=== PATIENT | male | born 1990 | race Caucasian/White ===

== ENCOUNTER 2019-11-20 16:20 | Emergency (ER) | payer SELFPAY ==
[2019-11-20 16:31] VITALS: BP 118/83; PULSE 94; RESP 18; TEMP 36.6; O2SAT 96; BMI 29.8
--- NOTE | 2019-11-20 16:43 | CTR_ITS ---
PROCEDURE INFORMATION: Exam: CT Head Without Contrast Exam date and time: 11/20/2019 4:46 PM Age: 29 years old Clinical indication: Dizziness and weakness, extremity; Bilateral; Patient HX: Weakness, dizziness , near syncope TECHNIQUE: Imaging protocol: Computed tomography of the head without contrast. Radiation optimization: All CT scans at this facility use at least one of these dose optimization techniques: automated exposure control; mA and/or kV adjustment per patient size (includes targeted exams where dose is matched to clinical indication); or iterative reconstruction. COMPARISON: No relevant prior studies available. RADIATION DOSE METRICS: Total DLP (mGy-cm): 756.52 FINDINGS: Brain: Normal. No hemorrhage. Unremarkable white matter. No mass effect. Ventricles: Normal. No ventriculomegaly. Bones/joints: Unremarkable. No acute fracture. Sinuses: There is partial opacification of the ethmoid air cells in keeping with some ethmoid sinusitis. Mastoid air cells: Visualized mastoid air cells are well aerated. Soft tissues: Unremarkable. CT/CT head wo con* [id number] IMPRESSION: Ethmoid sinus disease. No acute intracranial finding. Radiation Dose CTDIVOL = (mGy): DLP = 756.52 (mGy-cm)
--- NOTE | 2019-11-20 16:43 | XRR_ITS ---
PROCEDURE INFORMATION: Exam: XR Chest, 1 View Exam date and time: 11/20/2019 5:13 PM Age: 29 years old Clinical indication: Other: Weakness and syncope; Patient HX: PT weak and syncope 11/19. Shortness of breath TECHNIQUE: Imaging protocol: XR of the chest Views: 1 view. COMPARISON: No relevant prior studies available. FINDINGS: Lungs: Unremarkable. No consolidation. Pleural space: Unremarkable. No pleural effusion. No pneumothorax. Heart/Mediastinum: Unremarkable. No cardiomegaly. Bones/joints: Unremarkable. XR/XR chest 1V portable [id number] IMPRESSION: No acute findings.
--- NOTE | 2019-11-20 16:44 | ECG_ITS ---
[facility] Test Date: 2019-11-20 Pat Name: Lucian Garcia Department: Room: Gender: Male Sfdc Solution Architect: : 1990 Requested By: Brendan Mederos Order Number: [id number] Saige MD: Tom Boateng M.D. Measurements Intervals [place] Rate: 77 P: 35 VA: 157 QRS: 37 QRSD: 117 T: 44 QT: 383 QTc: 435 Interpretive Statements SINUS RHYTHM WITH SINUS ARRHYTHMIA MODERATE INTRAVENTRICULAR CONDUCTION DELAY [110+ ms QRS DURATION] No previous ECG available for comparison Electronically Signed On 11-21-2019 9:38:52 CDT by Tom Boateng M.D. [id number]
--- NOTE | 2019-11-20 16:44 | PC.NURSE ---
After triaging patient, mother stated her (patients father) had recently .
--- NOTE | 2019-11-20 16:51 | ED_ITS ---
HPI - Syncope General: Chief Complaint: Syncope Stated Complaint: sob/dizzy Time Seen by Provider: 11/20/19 16:43 History of Present Illness: HPI narrative: Patient has multiple symptoms or complaints. He complains of lightheadedness and dizziness. Patient states that he has syncopal episodes whether lying sitting or standing. Has nausea and also has no appetite. He also has generalized weakness and malaise. Patient also reports that there have been one or 2 episodes were all 4 extremities felt numb and tingly at the same time. Speaking with the family member learn the patient's father the day after Father's Day this year. MD complaint: felt faint, almost passed out and collapsed Prodromal symptoms: lightheaded, chest pain, palpitations, shortness of breath and vertigo Witnessed: Yes - by Other Context: at rest and alcohol use Injuries sustained associated with event: none Associated symptoms: Reports no associated symptoms Treatments prior to arrival: none Review of Systems General: Reports: 10 or more systems reviewed and unremarkable except in HPI and below PFSH ED PFSH: Social History Smoking and tobacco status: current every day smoker Physical Exam Const: COMMON NORMALS: no acute distress, healthy appearing and well nourished GENERAL APPEARANCE: cooperative and well developed HENMT: COMMON NORMALS: normocephalic and atraumatic HEAD & SCALP: normal to inspection, normocephalic and atraumatic Eye: GENERAL EYE: appearance normal, both eyes and all related structures Neck/C-Spine: COMMON NORMALS: full ROM, no lymphadenopathy and no meningeal signs GENERAL: Yes normal visual inspection CERVICAL SPINE: Yes cervical ROM normal and Yes normal cervical lordosis Chest: COMMONS NORMALS: normal inspection of the chest and normal palpation of entire chest wall Resp: COMMON NORMALS: normal respiratory effort, clear to auscultation bilaterally and percussion normal AUSCULTATION: clear to auscultation bilaterally PERCUSSION: percussion normal Cardio: COMMON NORMALS: regular rate, regular rhythm, S1 normal heart sound present and S2 normal heart sound present JUGULAR VENOUS DISTENTION: no JVD PALPATION: normal PMI RATE: regular rate RHYTHM: regular rhythm HEART SOUNDS: S1 normal heart sound present and S2 normal heart sound present GI: COMMON NORMALS: Soft to palpation and No hepatosplenomegaly present INSPECTION: Yes normal to inspection PALPATION: Yes Soft to palpation and Yes No hepatosplenomegaly present PERCUSSION: normal to percussion : COMMON NORMALS: Yes no CVA tenderness BLADDER/KIDNEY EXAM: Yes no CVA tenderness Back/Pelvis: COMMON NORMALS: no CVA tenderness, thoracic and lumbar spine normal to inspection and thoraco-lumbar ROM normal Extremity: COMMON NORMALS: normal to inspection, full ROM and capillary refill normal Neuro: MENINGEAL SIGNS: Yes no meningeal signs Skin: COMMON NORMALS: no rashes or lesions noted, no wounds and turgor normal GENERAL SKIN EXAM: no rashes or lesions noted, elasticity normal and turgor normal LESIONS: no lesions RASHES: no rashes TRAUMA: no lacerations or abrasions HAIR: normal NAILS: normal Course Vital Signs: Vital signs: Vital Signs Temperature 97.8 F 11/20/19 16:31 Pulse Rate 94 11/20/19 16:31 Respiratory Rate 18 11/20/19 16:31 Blood Pressure 118/83 11/20/19 16:31 Pulse Oximetry 96 11/20/19 16:31 MDM - Syncope Lab Data: Labs: Lab Results 11/20/19 11/20/19 11/20/19 Range/Units 16:50 16:50 16:50 WBC 9.6 (4.0-10.0) 10^3/ uL RBC 5.16 (4.1-5.3) 10^6/u L Hgb 15.5 (11.7-16.6) g/dL Hct 47.1 (42.0-52.0) % MCV 91.3 (80-94) fL MCH 30.0 (28.0-34.0) pg MCHC 32.9 (30.0-36.0) g/dL RDW 11.6 L (12.1-15.1) % Plt Count 323 (130-400) 10^3/c mm MPV 9.6 (7.4-10.4) fL Neut % (Auto) 67.9 % Lymph % (Auto) 21.9 % Valley % (Auto) 7.7 % Eos % (Auto) 1.6 % Baso % (Auto) 0.6 % Neut # (Auto) 6.6 (1.8-7.7) 10^3/u L Lymph # (Auto) 2.1 (0.8-4.8) 10^3/u L Valley # (Auto) 0.7 (0.2-0.9) 10^3/u L Eos # (Auto) 0.2 (0.0-0.8) 10^3/u L Baso # (Auto) 0.1 (0.0-0.1) 10^3/u L Nucleated RBC % (a uto) 0 % Nucleated RBCs # 0.0 /100WBC D-Dimer 0.04 (0-0.59) ug/mIFE U Sodium 137 (136-145) mmol/L Potassium 3.4 L (3.5-5.1) mmol/L Chloride 99 (98-107) mmol/L Carbon Dioxide 22 (22-29) mmol/L Anion Gap 19.4 H (5-19) BUN 13 (6-20) mg/dL Creatinine 1.0 (0.7-1.2) mg/dL GFR Calculation 87.2 L (90-130) mL/min Glucose 132 H (65-115) mg/dL Calculated Osmolal ity 282 L (285-295) mOsm/k g Lactate (0.5-2.2) mmol/L Calcium 9.8 (8.5-10.5) mg/dL Total Bilirubin 0.4 (0.15-1.2) mg/dL AST 44 H (0-40) U/L ALT 91 H (0-41) U/L Alkaline Phosphata se 107 (40-130) IU/L Total Protein 7.3 (6.6-8.7) g/dL Albumin 4.8 (3.5-5.2) g/dL Globulin 2.5 (1.3-4.6) g/dL Lipase 25 (13-60) U/L TSH 0.97 (0.27-4.20) uIU/ mL 11/20/19 Range/Units 16:50 WBC (4.0-10.0) 10^3/ uL RBC (4.1-5.3) 10^6/u L Hgb (11.7-16.6) g/dL Hct (42.0-52.0) % MCV (80-94) fL MCH (28.0-34.0) pg MCHC (30.0-36.0) g/dL RDW (12.1-15.1) % Plt Count (130-400) 10^3/c mm MPV (7.4-10.4) fL Neut % (Auto) % Lymph % (Auto) % Valley % (Auto) % Eos % (Auto) % Baso % (Auto) % Neut # (Auto) (1.8-7.7) 10^3/u L Lymph # (Auto) (0.8-4.8) 10^3/u L Valley # (Auto) (0.2-0.9) 10^3/u L Eos # (Auto) (0.0-0.8) 10^3/u L Baso # (Auto) (0.0-0.1) 10^3/u L Nucleated RBC % (a uto) % Nucleated RBCs # /100WBC D-Dimer (0-0.59) ug/mIFE U Sodium (136-145) mmol/L Potassium (3.5-5.1) mmol/L Chloride (98-107) mmol/L Carbon Dioxide (22-29) mmol/L Anion Gap (5-19) BUN (6-20) mg/dL Creatinine (0.7-1.2) mg/dL GFR Calculation (90-130) mL/min Glucose (65-115) mg/dL Calculated Osmolal ity (285-295) mOsm/k g Lactate 2.5 H (0.5-2.2) mmol/L Calcium (8.5-10.5) mg/dL Total Bilirubin (0.15-1.2) mg/dL AST (0-40) U/L ALT (0-41) U/L Alkaline Phosphata se (40-130) IU/L Total Protein (6.6-8.7) g/dL Albumin (3.5-5.2) g/dL Globulin (1.3-4.6) g/dL Lipase (13-60) U/L TSH (0.27-4.20) uIU/ mL Discharge Plan Discharge Patient Disposition: Home, Self-Care Clinical Impression: Episodic lightheadedness, Anxiety, ETOH abuse Condition: Stable Prescriptions: No Action Multiple Vitamins Tablet 1 tab PO DAILY RF: 0 Aspir-81 81 mg Tablet,Delayed Release (Dr/Ec) 81 mg PO PRN RF: 0 Tylenol Extra Strength 500 mg Tablet See Rx Instructions .ROUTE .COMPLEX RF: 0 Discharge Orders: Discharge Order (Routine); Ordered 11/20/19 Ordered By: Brendan Roberts Coding Level of Care Code ED National Sales Manager for g Fwd Exam Comprehensive
[2019-11-20 17:00] LABS: Basophils # 0.1 10^3/uL (0.0-0.1); Basophils % 0.6 %; Eosinophils # 0.2 10^3/uL (0.0-0.8); Eosinophils % 1.6 %; Hematocrit 47.1 % (42.0-52.0); Hemoglobin 15.5 g/dL (11.7-16.6); Lymphocytes # 2.1 10^3/uL (0.8-4.8); Lymphocytes % 21.9 %; Mean Corpuscular HGB Conc 32.9 g/dL (30.0-36.0); Mean Corpuscular Volume 91.3 fL (80-94); Mean Platelet Volume 9.6 fL (7.4-10.4); Monocytes # 0.7 10^3/uL (0.2-0.9); Monocytes % 7.7 %; Neutrophils # 6.6 10^3/uL (1.8-7.7); Neutrophils % 67.9 %; Nucleated Red Blood Cells % 0 %; Platelet Count 323 10^3/cmm (130-400); Red Blood Count 5.16 10^6/uL (4.1-5.3); Red Cell Distribution Width 11.6 % (12.1-15.1); White Blood Count 9.6 10^3/uL (4.0-10.0)
[2019-11-20] MEDS: sodium chloride 0.9% 1,000 ML 999 ML IV (17:03)
[2019-11-20 17:15] LABS: Lactate (Lactic Acid level) 2.5 mmol/L (0.5-2.2)
[2019-11-20 17:25] LABS: Alanine Aminotransferase 91 U/L (0-41); Albumin Level 4.8 g/dL (3.5-5.2); Alkaline Phosphatase 107 IU/L (40-130); Anion Gap 19.4 (5-19); Aspartate Amino Transferase 44 U/L (0-40); Blood Urea Nitrogen 13 mg/dL (6-20); Calcium 9.8 mg/dL (8.5-10.5); Carbon Dioxide 22 mmol/L (22-29); Chloride 99 mmol/L (98-107); Creatinine Clr Calc Pharmacy 130.9151; Globulin 2.5 g/dL (1.3-4.6); Glomerular Filtration Rate 87.2 mL/min (90-130); Glucose 132 mg/dL (65-115); Lipase 25 U/L (13-60); Osmolality Calculated 282 mOsm/kg (285-295); Potassium 3.4 mmol/L (3.5-5.1); Sodium 137 mmol/L (136-145); Thyroid Stimulating Hormone 0.97 uIU/mL (0.27-4.20); Total Bilirubin 0.4 mg/dL (0.15-1.2); Total Protein 7.3 g/dL (6.6-8.7)
[2019-11-20 17:29] LABS: D Dimer 0.04 ug/mIFEU (0-0.59)
[2019-11-20 17:51] VITALS: BP 140/78; PULSE 78; RESP 16; O2SAT 98
== END 2019-11-20 17:51 | disposition home or self-care (01) ==
PROVIDERS: Emergency Provider Family Medicine
DX: R42 Dizziness and giddiness (principal); F41.9 Anxiety disorder, unspecified; F10.10 Alcohol abuse, uncomplicated; Z79.82 Long term (current) use of aspirin; F17.210 Nicotine dependence, cigarettes, uncomplicated
CPT/HCPCS: 12345; 70450; 71045; 80053; 83605; 83690; 84443; 85025; 85378; 93005; 96361; 96374; 99283; 99284; J7030

== ENCOUNTER 2021-10-29 19:39 | Emergency (ER) | payer OTHER, SELFPAY ==
[2021-10-29 19:50] VITALS: BP 142/89; PULSE 77; RESP 18; TEMP 36.6; O2SAT 99; BMI 29.8
--- NOTE | 2021-10-29 20:04 | ECG_ITS ---
[facility] Test Date: 2021-10-29 Pat Name: Lucian Garcia Department: Room: Gender: Male Senior Marketing Associate: : 1990 Requested By: Michael Calloway Order Number: [id number] Saige MD: Anh Dubois M.D. Measurements Intervals [place] Rate: 77 P: 64 IA: 147 QRS: 29 QRSD: 113 T: 60 QT: 383 QTc: 434 Interpretive Statements SINUS RHYTHM WITH SINUS ARRHYTHMIA INCOMPLETE RIGHT BUNDLE BRANCH BLOCK [90+ ms QRS DURATION, TERMINAL R IN V1/V2, 40+ ms S IN I/aVL/V4/V5/V6] Compared to ECG 11/20/2019 17:40:51 Incomplete right bundle-branch block now present Intraventricular conduction delay no longer present Electronically Signed On 10-30-2021 20:09:05 CDT by Anh Dubois M.D. [id number]
[2021-10-29 20:11] LABS: Basophils # 0.1 10^3/uL (0.0-0.1); Basophils % 0.7 %; Eosinophils # 0.5 10^3/uL (0.0-0.8); Eosinophils % 5.6 %; Hematocrit 44.4 % (42.0-52.0); Lymphocytes # 2.3 10^3/uL (0.8-4.8); Lymphocytes % 27.7 %; Mean Corpuscular HGB Conc 33.8 g/dL (30.0-36.0); Mean Corpuscular Hemoglobin 29.9 pg (28.0-34.0); Mean Corpuscular Volume 88.4 fl (80-94); Mean Platelet Volume 9.9 fL (7.4-10.4); Monocytes # 0.8 10^3/uL (0.2-0.9); Monocytes % 9.2 %; Neutrophils # 4.61 10^3/uL (1.8-7.7); Neutrophils % 56.6 %; Nucleated Red Blood Cells % 0 %; Platelet Count 327 10^3/cmm (130-400); Red Blood Count 5.02 10^6/uL (4.1-5.3); Red Cell Distribution Width 11.9 % (12.1-15.1); White Blood Count 8.2 10^3/uL (4.0-10.0)
[2021-10-29 20:25] LABS: Anion Gap 14.2 (5-19); Blood Urea Nitrogen 15 mg/dL (6-20); Calcium 9.3 mg/dL (8.5-10.5); Carbon Dioxide 26 mmol/L (22-29); Chloride 104 mmol/L (98-107); Glomerular Filtration Rate 111.3 mL/min (90-130); Glucose 103 mg/dL (65-115); Osmolality Calculated 291 mOsm/kg (285-295); Potassium 4.2 mmol/L (3.5-5.1); Sodium 140 mmol/L (136-145)
[2021-10-29 21:01] LABS: Troponin T (5th) Once 6 ng/L (0-15)
== END 2021-10-30 01:03 | disposition left against medical advice (07) ==
PROVIDERS: Emergency Medicine; Emergency Provider Family Medicine
DX: Z53.21 Procedure and treatment not carried out due to patient leaving prior to being seen by health care provider (principal); R07.9 Chest pain, unspecified
CPT/HCPCS: 80048; 84484; 85025; 93005

== ENCOUNTER 2023-06-04 12:11 | Emergency (ER) | payer OTHER, SELFPAY ==
[2023-06-04 12:22] VITALS: BP 146/94; PULSE 84; RESP 16; TEMP 36.2; O2SAT 98; BMI 32.5
--- NOTE | 2023-06-04 13:13 | XRR_ITS ---
PROCEDURE INFORMATION: Exam: XR Left Finger(s) Exam date and time: 06/04/2023 1:21 PM Age: 33 years old Clinical indication: Injury or trauma; Other: Unspecified TECHNIQUE: Imaging protocol: Radiologic exam of the left fingers. Views: Minimum 2 views. COMPARISON: No relevant prior studies available. FINDINGS: Bones/joints: Normal. Soft tissues: Soft tissue defect tip of the left index finger. No radiopaque foreign body. XR/XR finger LT min 2V [id number] IMPRESSION: No acute bony abnormality.
--- NOTE | 2023-06-04 13:22 | W.ED.WOUNDLC ---
HPI - Wound/Laceration General: Chief Complaint: Wound/Laceration Stated Complaint: left index finger lac Time Seen by Provider: 06/04/23 12:24 History of Present Illness: 33-year-old male patient comes in with injury to the left index finger. 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 Patient has a oval avulsion approximately 1-1/2 x 1 cm to the finger pad of the left index finger. Patient has normal range of motion. Patient cannot recall his last tetanus. Patient at this time does go to treatment for substance use disorder and then methadone clinic. Review of Systems General: Reports: 10 or more systems reviewed and unremarkable except in HPI and below GI: Denies: abdominal pain : Denies: flank pain Musc: Reports: extremity pain Skin/Breast: Reports: new lesions [facility] ED PFSH: Medical History No active medical problems Surgical History History of appendectomy Family History Father CAD (coronary artery disease) Diabetes Social History Smoking and tobacco/nicotine status: current every day tobacco/nicotine user cigarettes Packs smoked per day: 0.5 Years cigarettes smoked: 15 Alcohol intake: current Alcohol intake frequency: holidays/special occasions only Substance/Drug Use: never Marital status details: Has a girlfriend Number of children: 2 Physical Exam Const: COMMON NORMALS: alert HENMT: COMMON NORMALS: normocephalic HEAD & SCALP: normocephalic Neck/C-Spine: COMMON NORMALS: full ROM Chest: COMMONS NORMALS: normal inspection of the chest Resp: COMMON NORMALS: normal respiratory effort and clear to auscultation bilaterally AUSCULTATION: clear to auscultation bilaterally Cardio: COMMON NORMALS: regular rate and regular rhythm RATE: regular rate RHYTHM: regular rhythm GI: COMMON NORMALS: Soft to palpation and non-tender PALPATION: Yes Soft to palpation Extremity: LEFT UPPER EXTREMITY: Yes hand & digits (Fingertip avulsion pad left index 1-1/2 x 1 oval shaped) Left hand and digits: Yes inspection, Yes palpation, Yes ROM and Yes neurovascular exam Neuro: SENSORIUM/ORIENTATION: Yes alert Skin: TRAUMA: other (Avulsion left index finger.) Course Vital Signs: Vital signs: Vital Signs Temperature 97.2 F L 06/04/23 12:22 Pulse Rate 84 06/04/23 12:22 Respiratory Rate 16 06/04/23 12:22 Blood Pressure 146/94 06/04/23 12:22 Pulse Oximetry 98 06/04/23 12:22 MDM - Wound/Laceration Medical Decision Making 33-year-old male patient comes in today for injury to the left index finger. On exam patient has a fingertip avulsion of the pad of the left index finger that is oval in shape approximately 1-1/2 x 1 cm. Patient has good range of motion of the finger. Cap refill is intact. Tendon function is normal. Differential diagnosis includes not limited to fracture, avulsion, need for prophylaxis tetanus, need for prophylaxis antibiotic. X-ray noted no fracture of the bone. Patient will be covered with Augmentin for prophylaxis antibiotics. Patient's tetanus was updated. Wound was cleaned and dressed with a nonstick dressing. Case management was requested to have patient follow-up with wound care/orthopedics for further evaluation and treatment of the wound. Patient reported understanding of care plan need for follow-up or return to the ER. Lab Data Radiology Impressions Finger X-Ray 06/04/23 13:13 IMPRESSION: No acute bony abnormality. XR interpretation done by ED provider, pending radiology final review Discharge Plan Discharge Patient Disposition: Home Clinical Impression: Avulsion of skin Condition: Stable Prescriptions: New amoxicillin-pot clavulanate 875-125 mg tablet 1 tab PO BID Qty: 20 0RF celecoxib 200 mg capsule 200 mg PO BID Qty: 20 0RF bacitracin 500 unit/gram ointment 1 applic topical DAILY Qty: 28 0RF Discharge Orders: Discharge ED (Routine); Ordered 06/04/23 Ordered By: Jose F Brandt Referrals: Houston Henry NP [Primary Care Provider] - Discharge Diet: Usual diet Discharge Activity: Increase activity as tolerated Patient Instructions: Skin Avulsion (ED) Activity Restrictions/Additional Instructions: Keep wound clean. Wash wound daily with mild soap and water and cover with antibiotic ointment and then dress it. Follow-up with primary care or pharmaceutical sales specialist for further evaluation and treatment. Return to ER for increasing redness and swelling, high fever, or new concerns. Coding Level of Care Code ED Commercial Helicopter Pilot for Frank Muhammad
[2023-06-04] MEDS: HYDROcodone-acetaminophen 7.5-325 mg Tablet 1 TAB PO (13:36)
[2023-06-04] MEDS: amoxicillin-clav 875-125 mg Tablet 1 TAB PO (13:56)
[2023-06-04] MEDS: lidocaine 2% Urojet 20 mL TOPICAL (13:57)
[2023-06-04] MEDS: tetanus-dipt-pertussis 0.5 mL SDV IM (13:59)
--- NOTE | 2023-06-04 14:16 | DCPLANNER ---
Message was sent to ortho on 06/04/23 at 1967. Clinic to contact patient.
== END 2023-06-04 14:15 | disposition home or self-care (01) ==
PROVIDERS: Emergency Provider Nurse Practitioner Family; PCP Clinical Nurse Specialist Adult Health
DX: S61.201A Unspecified open wound of left index finger without damage to nail, initial encounter (principal); Z72.0 Tobacco use; X58.XXXA Exposure to other specified factors, initial encounter; Y99.0 Civilian activity done for income or pay; Z23 Encounter for immunization
CPT/HCPCS: 73140; 90471; 90715; 99283